=== PATIENT | female | born 1935 | race Caucasian/White ===

== ENCOUNTER 2022-01-31 19:09 | Emergency (ER) | payer MEDICARE, OTHER ==
[~2022-01-31] VITALS: Ht 157.5 cm; Wt 53.5 kg
[2022-01-31] MEDS ORDERED: IV NS 0.9% 1,000 ML IV ONE (19:30)
[2022-01-31] MEDS ORDERED: ACETAMINOPHEN 325 MG TABLET PO ONE (19:30)
--- NOTE | 2022-01-31 19:34 | NUR ---
[id number] FROM [facility] C/O BURNING SENSATION WHEN URINATING SINCE WEDNESDAY. PT ON NITROFURANTOIN WITHOUT RELIEF. PT AWAKE AND ALERT BREATHING UNLABORED. AMBULATORY WITH ASSISTANCE. PLACED ON MONITOPR AND V/S WNL.
--- NOTE | 2022-01-31 19:40 | NUR ---
URINE COLLECTED AND SENT TO LAB
[2022-01-31] MEDS ORDERED: ACETAMINOPHEN 325 MG TABLET ONE (19:44)
--- NOTE | 2022-01-31 19:49 | NUR ---
20g IV LINE ESTABLISHED RF. BLOOD DRAWN AND SENT TO LAB.
[2022-01-31 20:15] LABS: BASOPHILS % (AUTO) 0.8 % (0.0-2.0); EOSINOPHILS % (AUTO) 0.6 % (0.0-6.0); HEMATOCRIT 38 % (33-45); LYMPHOCYTES # (AUTO) 1.3 K/uL (0.8-4.8); MEAN CORPUSCULAR HGB CONC 34 g/dl (31.0-36.0); MEAN CORPUSCULAR VOLUME 94 fL (82-100); MONOCYTES # (AUTO) 0.7 K/uL (0.1-1.30); MONOCYTES % (AUTO) 10.9 % (2.0-12.0); NEUTROPHILS % (AUTO) 65.7 % (43.0-81.0); PLATELET COUNT (AUTO) 207 K/uL (150-450); RED BLOOD CELL COUNT(AUTO) 4.07 MIL/uL (4.0-5.2); WHITE BLOOD COUNT (AUTO) 6.1 K/uL (4.3-11.0)
[2022-01-31 20:24] LABS: CALCIUM, SERUM 8.4 mg/dL (8.5-10.1); CREATININE 0.8 mg/dL (0.6-1.3); POTASSIUM 3.7 mmol/L (3.5-5.1)
[2022-01-31 20:30] LABS: ALBUMIN 3.5 g/dL (3.4-5.0); BILIRUBIN,DIRECT 0.2 mg/dL (0.0-0.2); BILIRUBIN,TOTAL 0.9 mg/dL (0.2-1.0); TOTAL PROTEIN, SERUM 6.6 g/dL (6.4-8.2)
[2022-01-31 20:52] LABS: COLOR,URINE ORANGE (YELLOW)
[2022-01-31 20:55] LABS: BACTERIA,URINE None seen /HPF (None Seen); SQUAMOUS EPITHELIAL CELL,UR 0-2 /HPF (None Seen)
[2022-01-31] MEDS ORDERED: KETOROLAC TROMETHAMINE INJ 30 MG/ML VIAL IV ONE (21:30)
[2022-01-31] MEDS ORDERED: KETOROLAC TROMETHAMINE 15 MG/ML VIAL ONE (21:33)
--- NOTE | 2022-01-31 21:33 | NUR ---
WILBERT COLLECTED AND SENT TO LAB
[2022-01-31] MEDS ORDERED: PHENAZOPYRIDINE HCL 200 MG TABLET PO ONE (22:00)
[2022-01-31] MEDS ORDERED: diphenhydrAMINE HCL 50 MG/ML VIAL IV ONE (22:00)
[2022-01-31] MEDS ORDERED: PHENAZOPYRIDINE HCL 200 MG TABLET ONE (22:28)
[2022-01-31] MEDS ORDERED: diphenhydrAMINE HCL 50 MG/ML VIAL ONE (22:28)
[2022-02-01] MEDS ORDERED: IV NS 0.9% 1,000 ML IV PRN (01:30)
[2022-02-01] MEDS ORDERED: CEFTRIAXONE 1 G in IV D5W 50 ML IV SCH (01:30)
[2022-02-01] MEDS ORDERED: ONDANSETRON HCL/PF 4 MG/2 ML VIAL IVP PRN (01:30)
[2022-02-01] MEDS ORDERED: ACETAMINOPHEN 325 MG TABLET PO PRN (01:30)
[2022-02-01] MEDS ORDERED: ZOLPIDEM TARTRATE 5 MG TABLET PO PRN (01:30)
[2022-02-01] MEDS ORDERED: Z GUARD REMEDY 4 OZ OINT TP PRN (01:30)
[2022-02-01] MEDS ORDERED: MAGNESIUM HYDROXIDE 30 ML UDC PO PRN (01:30)
[2022-02-01] MEDS ORDERED: MAG HYDROX/AL HYDROX/SIMETH 30 ML UDC PO PRN (01:30)
[2022-02-01] MEDS ORDERED: CEFTRIAXONE 1GM BAG (ER ONLY) 50 ML IV ONE (01:34)
--- NOTE | 2022-02-01 06:04 | NUR ---
ADMITTED TO [facility] ROOM [facility]-[address] VÍCTOR RN FOR REPORT ACCEPTING MD DR GORE
--- NOTE | 2022-02-01 06:21 | NUR ---
REPORT GIVEN TO VÍCTOR
--- NOTE | 2022-02-01 06:24 | NUR ---
SON JOCELYNE ALMANZAR
[2022-02-01 09:04] VITALS: BP 130/52
--- NOTE | 2022-02-01 09:05 | NUR ---
VS TAKEN AND RECORDED. PT ABLE TO BE AWAKENED, NOT IN ACUTE DISTRESS.
--- NOTE | 2022-02-01 09:55 | NUR ---
REPORT GIVEN TO AMBULANCE STAFF
--- NOTE | 2022-02-01 10:15 | NUR ---
Patient discharged to [facility] via private ambulance. Written and verbal after care instructions given. Bedside endorsement given to EMT.
== END 2022-02-01 10:18 | disposition short-term general hospital (02) ==
LOC: ER 19:17
DX: N39.0 Urinary tract infection, site not specified (principal); R53.1 Weakness; E87.1 Hypo-osmolality and hyponatremia; E86.0 Dehydration; E87.8 Other disorders of electrolyte and fluid balance, not elsewhere classified; E83.51 Hypocalcemia; G62.9 Polyneuropathy, unspecified; Z20.822 Contact with and (suspected) exposure to COVID-19
CPT/HCPCS: 99285; 96375; 96361; 87426; 85025; 80048; 87077; 87086; 83605; 83690; 80076; 87186; 81001; 36415; 96365; J1200; J1885; J0696; J7060; C9803

== ENCOUNTER 2022-05-09 18:11 | Emergency (ER) | payer OTHER ==
[~2022-05-09] VITALS: Ht 152.4 cm; Wt 45.4 kg
--- NOTE | 2022-05-09 18:19 | NUR ---
JESICA RA39 From [facility] "Trip/Fall- Left hip pain +shortening/rotation. Given 50mcg Fentanyl en transit". PLACED ON BED, AAOX4, BREATHING EVEN AND UNLABORED SATURATING AT 97%RA, IN PAIN 10/10 PS.
[2022-05-09] MEDS ORDERED: ONDANSETRON HCL/PF 4 MG/2 ML VIAL IVP ONE (19:30)
[2022-05-09] MEDS ORDERED: ONDANSETRON HCL/PF 4 MG/2 ML VIAL ONE (19:30)
[2022-05-09] MEDS ORDERED: MORPHINE SULFATE INJ 4 MG/ML DISP.SYRIN ONE ×2 (19:30→22:59)
[2022-05-09] MEDS ORDERED: MORPHINE SULFATE INJ 2 MG/ML DISP.SYRIN IV ONE (19:30)
--- NOTE | 2022-05-09 19:50 | NUR ---
SWAB FOR COVID19 SENT TO LAB
--- NOTE | 2022-05-09 19:51 | NUR ---
X-RAY TECH AT BEDSIDE
[2022-05-09 20:31] LABS: BASOPHILS % (AUTO) 0.3 % (0.0-2.0); EOSINOPHILS % (AUTO) 0.1 % (0.0-6.0); HEMATOCRIT 39 % (33-45); HEMOGLOBIN 12.9 g/dL (11.5-14.8); LYMPHOCYTES # (AUTO) 0.9 K/uL (0.8-4.8); LYMPHOCYTES % (AUTO) 13.6 % (20.0-44.0); MEAN CORPUSCULAR HGB CONC 33 g/dl (31.0-36.0); MEAN CORPUSCULAR VOLUME 96 fL (82-100); MONOCYTES # (AUTO) 0.5 K/uL (0.1-1.30); MONOCYTES % (AUTO) 7.3 % (2.0-12.0); NEUTROPHILS # (AUTO) 5.4 K/uL (1.8-8.9); NEUTROPHILS % (AUTO) 78.7 % (43.0-81.0); PLATELET COUNT (AUTO) 209 K/uL (150-450); RED BLOOD CELL COUNT(AUTO) 4.06 MIL/uL (4.0-5.2); WHITE BLOOD COUNT (AUTO) 6.9 K/uL (4.3-11.0)
[2022-05-09 20:41] LABS: CALCIUM, SERUM 9.2 mg/dL (8.5-10.1); CREATININE 0.9 mg/dL (0.6-1.3); POTASSIUM 4.9 mmol/L (3.5-5.1)
[2022-05-09 20:49] LABS: ALBUMIN 3.8 g/dL (3.4-5.0); BILIRUBIN,DIRECT 0.1 mg/dL (0.0-0.2); BILIRUBIN,TOTAL 0.7 mg/dL (0.2-1.0); TOTAL PROTEIN, SERUM 7.5 g/dL (6.4-8.2)
--- NOTE | 2022-05-09 20:51 | NUR ---
MEHDI MAYNARD: [phone]
[2022-05-09 22:05] VITALS: BP 154/69
[2022-05-09] MEDS ORDERED: MORPHINE SULFATE INJ 10 MG/ML DISP.SYRIN IV ONE (23:00)
--- NOTE | 2022-05-10 02:13 | NUR ---
PT IS ACCEPTET AT [facility] BY DR CARDOZO. GOING TO [facility] NUMBER FOR REPORT: [phone], ETA FOR AMBULANCE: [id number]
--- NOTE | 2022-05-10 03:03 | NUR ---
pt left accompanied by private ambulance in no distress going to [facility].
== END 2022-05-10 03:03 | disposition short-term general hospital (02) ==
LOC: ER 18:13
DX: S72.012A Unspecified intracapsular fracture of left femur, initial encounter for closed fracture (principal); W01.0XXA Fall on same level from slipping, tripping and stumbling without subsequent striking against object, initial encounter; Y92.099 Unspecified place in other non-institutional residence as the place of occurrence of the external cause; G62.9 Polyneuropathy, unspecified; R94.31 Abnormal electrocardiogram [ECG] [EKG]
CPT/HCPCS: 99285; 96374; 71045; 96375; 87426; 93005; 96376; 73503; 85025; 80048; 80076; 36415; 85730; J2270 ×3; J2405; 73502; C9803